=== PATIENT | female | born 1975 | race Two or more races ===

== ENCOUNTER 2025-07-06 10:08 | Emergency (ER) | payer MEDICAID, OTHER ==
[~2025-07-06] VITALS: Ht 165.1 cm; Wt 82.0 kg
--- NOTE | 2025-07-06 10:31 | ED.PDOC ---
Psychiatric HPI Comments 49 y.o female presents to the ED for an evaluation of anxiety followed by palpitations. Patient reports increased life stressors x 4-5 days, states that yesterday a [employer]PS worker came by her house and head some incorrect statements in which shortly after developed palpitations. She states today feeling very emotional, stressed and palpitations have worsened. Additionally, she mentions that her body feels "hard and tight" and at times her jaw locks when stress is at its highest. She was evaluated by her PCP yesterday and was referred to a therapist. She denies any chest pain, nausea, vomiting, diarrhea, fever, or chills. Chief Complaint: Anxiety Time Seen by MD: 10:21 Reviewed Notes: Nurses Notes, Medications, Allergies Information Source: Patient Mode of Arrival: Ambulatory Severity: Able to Care for Self Severity of Pain: None Severity of Mental Status: Moderate Severity of Symptoms: Moderate Timing: Days Duration: Since onset Presents with: Anxiety Circumstance: None Current substance abuse: None Stressors: Family Past Medical History PAST MEDICAL HISTORY: Cancer (breast ) Surgical History: Hysterectomy Surgical History (Other): breast Family History Family History: Reviewed,noncontributory to illness Social History Smoker: Non-Smoker Alcohol: Denies ETOH Use Drugs: Denies Drug Use Lives In: Home Constitutional: denies: chills, diaphoresis, fatigue, fever, malaise, sweats, weakness, others EENTM: denies: blurred vision, double vision, ear bleeding, ear discharge, ear drainage, ear pain, ear ringing, eye pain, eye redness, hearing loss, mouth pain, mouth swelling, nasal discharge, nose bleeding, nose congestion, nose pain, photophobia, tearing, throat pain, throat swelling, voice changes, others Respiratory: denies: cough, hemoptysis, orthopnea, SOB at rest, shortness of breath, SOB with excertion, stridor, wheezing, others Cardiovascular: reports: palpitations; denies: chest pain, dizzy spells, diaphoresis, Dyspnea on exertion, edema, irregular heart beat, left arm pain, lightheadedness, PND, syncope, others Gastrointestinal: denies: abdomen distended, abdominal pain, blood streaked bowels, constipated, diarrhea, dysphagia, difficulty swallowing, hematemesis, melena, nausea, poor appetite, poor fluid intake, rectal bleeding, rectal pain, vomiting, others Neurological: denies: dizziness, fainting, headache, left sided numbness, left sided weakness, numbness, paresthesia, pre-existing deficit, right sided numbness, right sided weakness, seizure, speech problems, tingling, tremors, weakness, others Musculoskeletal: denies: back pain, gout, joint pain, joint swelling, muscle pain, muscle stiffness, neck pain, others Integumetry: denies: bruises, change in color, change in hair/nails, dryness, laceration, lesions, lumps, rash, wounds, others Allergic/Immunocompromised: denies: Difficulty Healing, Frequent Infections, Hives, Itching, others Hematologic/Lymphatic: denies: anemia, blood clots, easy bleeding, easy bruising, swollen glands, others Endocrine: denies: excessive hunger, excessive sweating, excessive thirst, excessive urination, flushing, intolerance to cold, intolerance to heat, unexplained weight gain, unexplained weight loss, others Psychiatric: reports: anxiety; denies: bipolar disorder, depression, hopeless, panic disorder, schizophrenia, sleepless, suicidal, others All Other Systems: Reviewed and Negative Physical Exam General Appearance: No Apparent Distress HEENT: Normal ENT Inspection, Pharynx Normal, TMs Normal Neck: Full Range of Motion, Non-Tender, Normal, Normal Inspection Respiratory: Chest Non-Tender, Lungs Clear, No Accessory Muscle Use, No Respiratory Distress, Normal Breath Sounds Cardiovascular: No Edema, No JVD, No Murmur, No Gallop, Normal Peripheral Pulses, Regular Rate/Rhythm Breast Exam: Deferred Gastrointestinal: No Organomegaly, Non Tender, No Pulsatile Mass, Normal Bowel Sounds, Soft Genitalia: Deferred Pelvic: Deferred Rectal: Deferred Extremities: No calf tenderness, Normal capillary refill, Normal inspection, Normal range of motion, Non-tender, No pedal edema Musculoskeletal : Apperance: Normal Neurologic: Alert, energy management specialist II-XII nml as Tested, No Motor Deficits, Normal Affect, Normal Mood, No Sensory Deficits Cerebellar Function: Normal Reflexes: Normal Skin: Dry, Normal Color, Warm Lymphatic: No Adenopathy EKG EKG : Pulse Rate (adult): 77 [place]: Normal Cardiac Rhythm: NSR Block: None Hypertrophy: ANTONI ST: Normal Was a procedure done? Was a procedure done?: No Psych Differential Dx Psych. Differential Dx: Anxiety, Sleepless X-Ray, Labs, Meds, VS Vital Signs Date Time Temp Pulse Resp B/P (MAP) Pulse Ox O2 Delivery O2 Flow Rate FiO2 07/06/25 10:31 77 07/06/25 10:20 77 07/06/25 10:09 97.7 97 18 178/101 100 97.7 Lab Test 07/06/25 10:28 Range/Units White Blood Count 2.8 L 4.4-10.8 10^3/uL Red Blood Count 3.76 L 4.0-5.20 10^6/uL Hemoglobin 12.3 12.2-16.2 g/dL Hematocrit 35.8 L 36.0-46.0 % Mean Corpuscular Volume 95.1 80.0-100.0 fL Mean Corpuscular Hemoglobin 32.7 H 28.0-32.0 pg Mean Corpuscular Hemoglobin Concent 34.4 32.0-36.0 g/dL Red Cell Distribution Width 17.9 H 11.8-14.3 % Platelet Count 258 140-450 10^3/uL Mean Platelet Volume 7.3 6.9-10.8 fL Neutrophils (%) (Auto) 57.5 37.0-80.0 % Lymphocytes (%) (Auto) 35.1 10.0-50.0 % Monocytes (%) (Auto) 5.7 0.0-12.0 % Eosinophils (%) (Auto) 0.7 0.0-7.0 % Basophils (%) (Auto) 1.0 0.0-2.0 % Neutrophils # (Auto) 1.6 1.6-8.6 10 ^3/uL Lymphocytes # (Auto) 1.0 0.4-5.4 10 ^3/uL Monocytes # (Auto) 0.2 0-1.3 10 ^3/uL Eosinophils # (Auto) 0 0-0.8 10 ^3/uL Basophils # (Auto) 0 0-0.2 10 ^3/uL Nucleated Red Blood Cells 0.1 % Sodium Level 141 136-145 mmol/L Potassium Level 3.9 3.5-5.1 mmol/L Chloride Level 103 98-107 mmol/L Carbon Dioxide Level 27 20-31 mmol/L Anion Gap 11 5-15 Blood Urea Nitrogen 10 9-23 mg/dL Creatinine 0.72 0.550-1.02 mg/dL Glomerular Filtration Rate Calc 102 >90 mL/min BUN/Creatinine Ratio 13.9 10.0-20.0 Serum Glucose 200 H 74-106 mg/dL Calcium Level 9.7 8.7-10.4 mg/dL Troponin I High Sensitivity < 3 L </=34 ng/L Current Medications Medications (Trade) Dose Ordered Sig/Micki Route Start Time Stop Time Status Last Admin Alprazolam (Xanax Tablet) 0.5 mg ONCE ONCE PO 07/06/25 10:30 07/06/25 10:31 DC 07/06/25 11:00 The patient was given Xanax 0.5 mg p.o. The patient's CBC is within normal limits The chemistry panel is within normal limits The patient's troponin level is negative At this time, the patient is being discharged and will follow up with the primary care doctor The patient will return to the emergency department's condition worsens. Time of 1ST Reevaluation: 10:31 Reevaluation 1ST: Unchanged Patient Education/Counseling: Diagnosis, Treatment, Prognosis, Need For Follow Up Family Education/Counseling: No Family Present Departure 1 Departure Time of Disposition: 11:45 Impression: Primary Impression: Acute anxiety Additional Impression: Palpitations Disposition: 01 HOME / SELF CARE / HOMELESS Condition: Fair Discharged With: Self Critical Care Note Critical Care Time?: No Stability Stability form required: No Heart Score Heart Score: Heart Score Response (Comments) Value History Slightly Suspicious 0 EKG Normal 0 Age 45-64 1 Risk Factors 1 or 2 risk factors 1 Troponin Normal limit 0 Total 2 I personally scribed for JANN DUKES MD ([email or web address]) on 07/06/25 at 10:31. Electronically submitted by Shilpa Warner ([facility]). JANN DUKES MD Jul 06, 2025 10:31
[2025-07-06 10:56] LABS: Hematocrit 35.8 % (36.0-46.0); Hemoglobin 12.3 g/dL (12.2-16.2); Mean Corpuscular Hemoglobin 32.7 pg (28.0-32.0); Mean Corpuscular Volume 95.1 fL (80.0-100.0); Nucleated Red Blood Cells % 0.1 %
[2025-07-06] MEDS: ALPRAZolam 0.5 MG TAB PO ONE (11:00)
[2025-07-06 11:04] LABS: Chloride 103 mmol/L (98-107); Sodium 141 mmol/L (136-145)
[2025-07-06 11:05] LABS: Calcium 9.7 mg/dL (8.7-10.4)
[2025-07-06 11:10] LABS: BUN/Creatinine Ratio 13.9 (10.0-20.0); Blood Urea Nitrogen 10 mg/dL (9-23)
[2025-07-06 11:15] LABS: Glucose 200 mg/dL (74-106)
[2025-07-06 11:18] LABS: Potassium 3.9 mmol/L (3.5-5.1)
[2025-07-06 11:19] LABS: Anion Gap 11 (5-15); Carbon Dioxide 27 mmol/L (20-31)
[2025-07-06 12:08] VITALS: BP 117/74; PULSE 65; RESP 17; TEMP 98.1; O2SAT 98
--- NOTE | 2025-07-07 19:38 | ECG ---
[facility] Test Date: 2025-07-06 Test Time: 10:20:16 Pat Name: MIKE MEJIAS Department: ED Room: Gender: F B[employer] Digger: RAFAELA : 1975 Requested By: JANN DUKES Order Number: [id number] Reading MD: Renato Alex Measurements Intervals George Rate: 77 P: -45 AR: 126 QRS: -2 QRSD: 94 T: 43 QT: 403 QTc: 457 Interpretive Statements Sinus or ectopic atrial rhythm Consider right atrial enlargement Electronically Signed On 07-10-2025 17:42:09 PST by Renato Alex Please click the below link to view image of tracing.
== END 2025-07-06 12:12 | disposition home or self-care (01) ==
LOC: ER 10:08 → EDSEX 10:08 → ER 12:12
DX: F41.9 Anxiety disorder, unspecified (principal); R00.2 Palpitations; Z85.3 Personal history of malignant neoplasm of breast; Z90.710 Acquired absence of both cervix and uterus
CPT/HCPCS: 36415; 80048; 84484; 85025; 93005